=== PATIENT | female | born 1980 | race Asian ===

== ENCOUNTER 2018-07-20 08:39 | Inpatient (IN) | payer SELFPAY ==
[2018-07-20] MEDS ORDERED: OXYTOCIN 30 UNITS/LR 500 ML IV ×3 (09:30→20:00)
[2018-07-20] MEDS ORDERED: BUTORPHANOL 2 MG INJ IV (09:30)
[2018-07-20] MEDS ORDERED: METHYLERGONOVINE 0.2 MG INJ IM ×2 (09:30→20:00)
[2018-07-20] MEDS ORDERED: OXYCODONE/ASPIRIN (4.88/325) TAB PO (09:30)
[2018-07-20] MEDS ORDERED: MISOPROSTOL 200 MCG TAB PR ×2 (09:30→20:00)
[2018-07-20] MEDS ORDERED: CARBOPROST 250 MCG INJ IM ×2 (09:30→20:00)
[2018-07-20] MEDS: LACTATED RINGER'S 1,000 ML IV ×2 (09:50→16:36)
[2018-07-20] MEDS: AMPICILLIN 2 GM/NS (PMX) 100 ML IV (09:53)
[2018-07-20 10:08] LABS: ADD MAN DIFF? NO
[2018-07-20 10:10] LABS: BASOPHILS % 0.2 % (0.0-2.0); EOSINOPHILS # 0.4 10^3/ul (0.0-0.5); EOSINOPHILS % 2.1 % (0.0-7.0); HEMATOCRIT 37.8 % (37.0-47.0); HEMOGLOBIN 12.6 g/dl (12.0-16.0); LYMPHOCYTES # 1.4 10^3/ul (0.8-2.9); LYMPHOCYTES % 7.5 % (15.0-51.0); MEAN CORPUSCULAR HEMOGLOBIN 30.8 pg (29.0-33.0); MEAN CORPUSCULAR HGB CONC 33.3 g/dl (32.0-37.0); MEAN CORPUSCULAR VOLUME 92.4 fl (82.0-101.0); MEAN PLATELET VOLUME 10.2 fl (7.4-10.4); MONOCYTE # 0.9 10^3/ul (0.3-0.9); MONOCYTES % 4.9 % (0.0-11.0); NEUTROPHIL # 15.9 10^3/ul (1.6-7.5); NEUTROPHILS % 84.7 % (39.0-77.0); PLATELET COUNT 314 10^3/UL (140-415); RED BLOOD COUNT 4.09 10^6/ul (4.20-5.40); RED CELL DISTRIBUTION WIDTH 13.2 % (11.5-14.5)
[2018-07-20 10:10] LABS: WHITE BLOOD COUNT 18.7 10^3/ul (4.8-10.8)
[2018-07-20 10:32] LABS: INR 0.82; PROTIME 11.3 Sec (11.9-14.9); PT RATIO 0.9
[2018-07-20 10:33] LABS: PARTIAL THROMBOPLASTIN TIME 26.1 Sec (23.0-35.0)
[2018-07-20 11:05] LABS: HEPATITIS B SURFACE ANTIGEN NEGATIVE (NEGATIVE)
[2018-07-20] MEDS: AMPICILLIN 1 GM/NS (PMX) 50 ML IV (13:30)
[2018-07-20] MEDS: OXYTOCIN 30 UNITS/LR 500 ML IV ×2 (15:28→18:44)
[2018-07-20] MEDS: BUTORPHANOL 2 MG INJ IV (15:56)
[2018-07-20 17:12] LABS: RAPID PLASMA REAGIN NONREACTIVE (NR)
[2018-07-20] MEDS: LIDOCAINE 1% (MPF) 30 ML INJ INJ (18:11)
[2018-07-20] MEDS: IBUPROFEN 600 MG TAB PO (18:41)
[2018-07-20] MEDS ORDERED: DIPHENHYDRAMINE 25 MG CAP PO (20:00)
[2018-07-20] MEDS ORDERED: ACETAMINOPHEN 325 MG TAB PO (20:00)
[2018-07-20] MEDS ORDERED: HYDROCODONE/APAP (5/325) TAB PO (20:00)
[2018-07-20] MEDS ORDERED: ONDANSETRON 4 MG INJ IV (20:00)
[2018-07-20] MEDS ORDERED: ZOLPIDEM 5 MG TAB PO (20:00)
[2018-07-20] MEDS ORDERED: NACL 0.9% 3 ML SYG IV (20:00)
[2018-07-20] MEDS: WITCH HAZEL/GLYCERIN PAD PR (21:56)
[2018-07-20] MEDS: LANOLIN HPA 1 PKT TOP (21:57)
[2018-07-20] MEDS: SENNA/DOCUSATE NA (8.6MG/50MG) TAB PO (21:57)
[2018-07-21] MEDS: IBUPROFEN 600 MG TAB PO ×5 (00:08→23:38)
[2018-07-21 08:47] LABS: HEMATOCRIT 34.7 % (37.0-47.0)
[2018-07-21] MEDS: SENNA/DOCUSATE NA (8.6MG/50MG) TAB PO ×2 (09:31→23:37)
[2018-07-21] MEDS: WITCH HAZEL/GLYCERIN PAD PR (11:28)
[2018-07-21] MEDS: OXYTOCIN 30 UNITS/LR 500 ML IV (19:32)
[2018-07-22] MEDS: IBUPROFEN 600 MG TAB PO ×2 (05:48→12:24)
[2018-07-22] MEDS: WITCH HAZEL/GLYCERIN PAD PR (08:41)
[2018-07-22] MEDS: SENNA/DOCUSATE NA (8.6MG/50MG) TAB PO (09:22)
== END 2018-07-22 14:25 | disposition home or self-care (01) | DRG 807 ==
LOC: OBT 08:39 → L-D 08:39 → OBT 09:06 → L-D 09:05 → PP1 20:23
PROVIDERS: Obstetrics & Gynecology Obstetrics
PROC: 10E0XZZ Delivery of Products of Conception, External Approach (ICD-10-PCS; principal; 2018-07-20)
PROC: 10907ZC Drainage of Amniotic Fluid, Therapeutic from Products of Conception, Via Natural or Artificial Opening (ICD-10-PCS; 2018-07-20)
PROC: 0KQM0ZZ Repair Perineum Muscle, Open Approach (ICD-10-PCS; 2018-07-20)
DX: O70.1 Second degree perineal laceration during delivery (principal); Z37.0 Single live birth; O75.89 Other specified complications of labor and delivery; M53.3 Sacrococcygeal disorders, not elsewhere classified; Z3A.37 37 weeks gestation of pregnancy
CPT/HCPCS: 85014; 85018; 85025; 85610; 85730; 86592; 86850; 86900; 86901; 87340; 99464